=== PATIENT | male | born 1985 | race Caucasian/White ===

== ENCOUNTER 2018-05-19 17:08 | Emergency (ER) | payer MEDICAID ==
[~2018-05-19] VITALS: Ht 185.4 cm; Wt 88.5 kg
[2018-05-19 17:20] VITALS: BP 135/85
--- NOTE | 2018-05-19 17:30 | Emergency Room Report ---
History of Present Illness General Chief Complaint: General Complaint Source: Patient (Justino Womack MD) Present Illness HPI Patient is a 32-year-old male presented for increased generalized weakness. Patient reports having increased generalized fatigue and chest discomfort worse with upright position. He reports having prior Holter monitor which was nondiagnostic. Patient denies any prior history of cardiac disease. He denies being a smoker. He reports having increased left-sided chest pain. This had onset several days ago. It was intermittent in nature. He reports having some subjective fever and chills. (Justino Womack MD) Allergies: Coded Allergies: No Known Allergies (Unverified , 05/19/18) Patient History Reviewed Nursing Documentation: PMH: Agreed; PSxH: Agreed (Justino Womack MD) Nursing Documentation-PMH Past Medical History: No Stated History (Justino Womack MD) Review of Systems All Other Systems: negative except mentioned in HPI (Justino Womack MD) Physical Exam Vital Signs Date Time Temp Pulse Resp B/P (MAP) Pulse Ox O2 Delivery O2 Flow Rate FiO2 05/19/18 17:12 98.2 78 18 140/93 97 Room Air Sp02 EP Interpretation: reviewed, normal General Appearance: normal inspection, well appearing, no apparent distress, alert, GCS 15, non-toxic Head: atraumatic ENT: normal ENT inspection, hearing grossly normal, normal voice Neck: normal inspection, full range of motion, supple, no bony tend Respiratory: normal inspection, lungs clear, normal breath sounds, no respiratory distress, no retraction, no wheezing Cardiovascular #1: regular rate, rhythm, no edema Gastrointestinal: normal inspection, normal bowel sounds, non tender, soft, no guarding, no hernia Genitourinary: no CVA tenderness Musculoskeletal: normal inspection, back normal, normal range of motion Neurologic: normal inspection, alert, oriented x3, responsive, 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 Differential diagnosis includes is not limited to anxiety, pericarditis, myocardial infarction,aortic dissection among others.Because of complexity of patient's case laboratory testing and imaging studies were ordered. Patient shows some evidence of pancreatitis on laboratory testing. CT imaging showed no evident pancreatic structural changes. Patient was advised not to drink alcohol. Patient was also advised to follow up with primary care physician for further evaluation of elevation of TSH. Advised to follow a bland diet. He was to return for any concerns. Labs Test 05/19/18 17:58 White Blood Count 8.0 K/UL (4.8-10.8) Red Blood Count 5.56 M/UL (4.70-6.10) Hemoglobin 16.6 G/DL (14.2-18.0) Hematocrit 50.3 % (42.0-52.0) Mean Corpuscular Volume 90 FL (80-99) Mean Corpuscular Hemoglobin 29.9 PG (27.0-31.0) Mean Corpuscular Hemoglobin Concent 33.0 G/DL (32.0-36.0) Red Cell Distribution Width 11.4 % (11.6-14.8) Platelet Count 163 K/UL (150-450) Mean Platelet Volume 7.1 FL (6.5-10.1) Neutrophils (%) (Auto) 62.9 % (45.0-75.0) Lymphocytes (%) (Auto) 25.1 % (20.0-45.0) Monocytes (%) (Auto) 7.2 % (1.0-10.0) Eosinophils (%) (Auto) 4.1 % (0.0-3.0) Basophils (%) (Auto) 0.8 % (0.0-2.0) Urine Color Pale yellow Urine Appearance Clear Urine pH 6 (4.5-8.0) Urine Specific [place] 1.020 (1.005-1.035) Urine Protein Negative (NEGATIVE) Urine Glucose (UA) Negative (NEGATIVE) Urine Ketones Negative (NEGATIVE) Urine Blood 1+ (NEGATIVE) Urine Nitrite Negative (NEGATIVE) Urine Bilirubin Negative (NEGATIVE) Urine Urobilinogen Normal MG/DL (0.0-1.0) Urine Leukocyte Esterase Negative (NEGATIVE) Urine RBC 5-10 /HPF (0 - 0) Urine WBC 0 /HPF (0 - 0) Urine Squamous Epithelial Cells Occasional /LPF Urine Bacteria Occasional /HPF (NONE) Sodium Level 140 MMOL/L (136-145) Potassium Level 3.5 MMOL/L (3.5-5.1) Chloride Level 102 MMOL/L (98-107) Carbon Dioxide Level 29 MMOL/L (21-32) Anion Gap 9 mmol/L (5-15) Blood Urea Nitrogen 21 mg/dL (7-18) Creatinine 1.2 MG/DL (0.55-1.30) Estimat Glomerular Filtration Rate > 60 mL/min (>60) Glucose Level 96 MG/DL (74-106) Calcium Level 9.6 MG/DL (8.5-10.1) Total Bilirubin 0.4 MG/DL (0.2-1.0) Aspartate Amino Transf (AST/SGOT) 20 U/L (15-37) Alanine Aminotransferase (ALT/SGPT) 23 U/L (12-78) Alkaline Phosphatase 52 U/L (46-116) Troponin I 0.000 ng/mL (0.000-0.056) Total Protein 8.2 G/DL (6.4-8.2) Albumin 4.2 G/DL (3.4-5.0) Globulin 4.0 g/dL Albumin/Globulin Ratio 1.0 (1.0-2.7) Lipase 1047 U/L (73-393) Thyroid Stimulating Hormone (TSH) 5.423 uiU/mL (0.358-3.740) Urine Opiates Screen Negative (NEGATIVE) Urine Barbiturates Screen Negative (NEGATIVE) Phencyclidine (PCP) Screen Negative (NEGATIVE) Urine Amphetamines Screen Negative (NEGATIVE) Urine Benzodiazepines Screen Negative (NEGATIVE) Urine Cocaine Screen Negative (NEGATIVE) Urine Marijuana (THC) Screen Negative (NEGATIVE) (Justino Womack MD) ER Course Final CT reading this morning noted a 1.5 cm right renal lesion, possibly cyst. Can be further evaluated with an outpatient ultrasound. I spoke to patient and explained the findings. He understands that he will follow-up with his PMD. He will obtain copies of his medical records as well. (Harrison Gonzales MD) EKG Diagnostic Results Rate: normal - 74 Rhythm: NSR ST Segments: no acute changes (Justino Womack MD) Last Vital Signs Date Time Temp Pulse Resp B/P (MAP) Pulse Ox O2 Delivery O2 Flow Rate FiO2 05/19/18 17:12 98.2 78 18 140/93 97 Room Air Status: improved (Justino Womack MD) Disposition: HOME, SELF-CARE Condition: Stable Scripts No Active Prescriptions or Reported Meds Justino Womack MD May 19, 2018 17:30 Harrison Gonzales MD May 20, 2018 14:30
[2018-05-19 18:11] LABS: BASOPHILS % (AUTO) 0.8 % (0.0-2.0); EOSINOPHILS % (AUTO) 4.1 % (0.0-3.0); HEMATOCRIT 50.3 % (42.0-52.0); HEMOGLOBIN 16.6 G/DL (14.2-18.0); LYMPHOCYTES % (AUTO) 25.1 % (20.0-45.0); MEAN CORPUSCULAR VOLUME 90 FL (80-99); MONOCYTES % (AUTO) 7.2 % (1.0-10.0); NEUTROPHILS % (AUTO) 62.9 % (45.0-75.0); PLATELET COUNT 163 K/UL (150-450); RED BLOOD COUNT 5.56 M/UL (4.70-6.10); RED CELL DISTRIBUTION WIDTH 11.4 % (11.6-14.8)
[2018-05-19 18:12] LABS: APPEARANCE,URINE CLEAR; BILIRUBIN, URINE NEGATIVE (NEGATIVE); COLOR,URINE PALE YELLOW; GLUCOSE, URINE (UA) NEGATIVE (NEGATIVE); KETONES,URINE NEGATIVE (NEGATIVE); LEUKOCYTE ESTERASE ,URINE NEGATIVE (NEGATIVE); NITRITE,URINE NEGATIVE (NEGATIVE); PH,URINE 6 (4.5-8.0); PROTEIN,URINE NEGATIVE (NEGATIVE); UROBILINOGEN,URINE NORMAL MG/DL (0.0-1.0)
[2018-05-19 18:30] LABS: ANION GAP 9 mmol/L (5-15); BLOOD UREA NITROGEN 21 mg/dL (7-18); CALCIUM 9.6 MG/DL (8.5-10.1); CARBON DIOXIDE 29 MMOL/L (21-32); CHLORIDE 102 MMOL/L (98-107); CREATININE 1.2 MG/DL (0.55-1.30); POTASSIUM 3.5 MMOL/L (3.5-5.1); SODIUM 140 MMOL/L (136-145)
[2018-05-19 18:44] LABS: ALANINE AMINOTRANSFERASE 23 U/L (12-78); ALBUMIN 4.2 G/DL (3.4-5.0); ALKALINE PHOSPHATASE 52 U/L (46-116); ASPARTATE AMINO TRANSFERASE 20 U/L (15-37); BILIRUBIN,TOTAL 0.4 MG/DL (0.2-1.0)
[2018-05-19] MEDS ORDERED: Isovue-300 100ml vial INJ PRN (19:00)
[2018-05-19 20:15] VITALS: BP 135/85
--- NOTE | 2018-05-20 10:31 | Diagnostic Imaging Report ---
Clinical Indication: Abdominal pain and chest discomfort Technique: No oral contrast utilized, per emergency room physician request IV administration nonionic contrast. Venous phase spiral acquisition obtained through the abdomen and pelvis. Multiplanar reconstructions were generated. Total dose length product 874.37 mGycm. CTDIvol(s) 15.91 mGy. Dose reduction achieved using automated exposure control Comparison: none Findings: The appendix is normal. There are prominent nodes in the right lower quadrant mesentery. No free or loculated intraperitoneal gas or fluid is evident. No evidence of diverticulosis or diverticulitis. No small bowel distention. The distal esophagus, stomach, duodenum are unremarkable. The liver demonstrates subcentimeter low-attenuation lesions which are too small to characterize. The gallbladder, bile ducts, pancreas, spleen, adrenals are unremarkable. The right kidney demonstrates a 1.5 cm lesion in the interpolar region of the renal sinus which demonstrates nonspecific attenuation. Subcentimeter low-attenuation lesions are seen in the left kidney. No retroperitoneal mass or adenopathy. No pelvic mass or adenopathy. The included lung bases are clear except for some posterior dependent atelectatic changes. The bones are unremarkable Impression: No acute abnormality 1.5 cm right renal lesion, likely but not definitively a benign simple cortical cyst. Recommend ultrasound for further evaluation. This recommendation was discussed by phone with ER physician Dr. Gonzales at the time of interpretation Other subcentimeter low-attenuation left renal lesions which are too small to characterize, most likely benign simple cysts. No further follow-up necessary Prominent but not frankly enlarged right lower quadrant nodes, nonspecific Posterior dependent pulmonary atelectatic changes incidentally noted This agrees with the preliminary interpretation provided overnight by [facility]erad[facility] service. The CT scanner at [facility] is accredited by the [employer] and the scans are performed using protocols designed to limit radiation exposure to as low as reasonably achievable to attain images of sufficient resolution adequate for diagnostic evaluation.
--- NOTE | 2018-05-20 12:27 | Cardiology Report ---
APPROVED REPORT EKG Measurement Heart [id number] Normal sinus rhythm with sinus arrhythmia Normal ECG
== END 2018-05-19 20:10 | disposition home or self-care (01) ==
LOC: EMR 17:45
DX: K85.90 Acute pancreatitis without necrosis or infection, unspecified (principal); R94.6 Abnormal results of thyroid function studies; R07.9 Chest pain, unspecified
CPT/HCPCS: 36415; 74177; 80053; 80307; 81003; 83690; 84443; 84484; 85025; 85379; 93005; 99284; Q9967

== ENCOUNTER 2018-05-21 16:55 | Emergency (ER) | payer MEDICAID ==
[~2018-05-21] VITALS: Ht 185.4 cm; Wt 88.5 kg
[2018-05-21] MEDS ORDERED: NKM (17:03)
--- NOTE | 2018-05-21 17:07 | Emergency Room Report ---
History of Present Illness General Chief Complaint: Abdominal Pain Source: Patient Present Illness HPI Patient is a 32-year-old male brought in by self after increased abdominal pain. Patient been seen by me several days ago and was noted to have increased abdominal discomfort which did not improve. Patient had recent diagnosis of pancreatitis and had normal CT imaging performed several days ago. He reports having worsening pain after eating.. Allergies: Coded Allergies: No Known Allergies (Unverified , 05/21/18) Patient History Reviewed Nursing Documentation: PMH: Agreed; PSxH: Agreed Nursing Documentation-PMH Past Medical History: No History, Except For Hx Gastrointestinal Problems: Yes - PANCREATITIS Review of Systems All Other Systems: negative except mentioned in HPI Physical Exam Vital Signs Date Time Temp Pulse Resp B/P (MAP) Pulse Ox O2 Delivery O2 Flow Rate FiO2 05/21/18 16:59 98.4 70 16 132/84 98 Room Air Sp02 EP Interpretation: reviewed, normal General Appearance: normal inspection, well appearing, no apparent distress, alert, GCS 15, non-toxic Head: atraumatic ENT: normal ENT inspection, hearing grossly normal, normal voice Neck: normal inspection, full range of motion, supple, no bony tend Respiratory: normal inspection, lungs clear, normal breath sounds, no respiratory distress, no retraction, no wheezing Cardiovascular #1: regular rate, rhythm, no edema Gastrointestinal: normal inspection, normal bowel sounds, non tender, soft, no guarding, no hernia Genitourinary: no CVA tenderness Musculoskeletal: normal inspection, back normal, normal range of motion Neurologic: normal inspection, alert, oriented x3, responsive, 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 Differential diagnoses included ischemic bowel, appendicitis, perforated viscus, abdominal aortic aneurysm, inferior myocardial infarction, viral gastroenteritis among others. Because of complexity of patient's case laboratory testing and imaging studies were ordered. Patient was noted to have recent diagnosis of pancreatitis. He was given IV fluids as well as IV pain medications.Patient was noted to have normal lipase on laboratory testing. Patient's recent CT imaging did not showed any evidence of structural abnormalities. Patient was advised dietary modification. Patient was advised to recheck with his primary care physician for further workup of his thyroid. He was given prescription for pain medications. Labs Test 05/21/18 17:30 White Blood Count 5.1 K/UL (4.8-10.8) Red Blood Count 5.38 M/UL (4.70-6.10) Hemoglobin 16.2 G/DL (14.2-18.0) Hematocrit 47.7 % (42.0-52.0) Mean Corpuscular Volume 89 FL (80-99) Mean Corpuscular Hemoglobin 30.1 PG (27.0-31.0) Mean Corpuscular Hemoglobin Concent 33.9 G/DL (32.0-36.0) Red Cell Distribution Width 10.9 % (11.6-14.8) Platelet Count 160 K/UL (150-450) Mean Platelet Volume 6.8 FL (6.5-10.1) Neutrophils (%) (Auto) 62.0 % (45.0-75.0) Lymphocytes (%) (Auto) 27.2 % (20.0-45.0) Monocytes (%) (Auto) 7.0 % (1.0-10.0) Eosinophils (%) (Auto) 3.2 % (0.0-3.0) Basophils (%) (Auto) 0.6 % (0.0-2.0) Sodium Level 141 MMOL/L (136-145) Potassium Level 3.7 MMOL/L (3.5-5.1) Chloride Level 102 MMOL/L (98-107) Carbon Dioxide Level 28 MMOL/L (21-32) Anion Gap 11 mmol/L (5-15) Blood Urea Nitrogen 9 mg/dL (7-18) Creatinine 1.1 MG/DL (0.55-1.30) Estimat Glomerular Filtration Rate > 60 mL/min (>60) Glucose Level 88 MG/DL (74-106) Calcium Level 9.4 MG/DL (8.5-10.1) Total Bilirubin 0.6 MG/DL (0.2-1.0) Aspartate Amino Transf (AST/SGOT) 20 U/L (15-37) Alanine Aminotransferase (ALT/SGPT) 22 U/L (12-78) Alkaline Phosphatase 47 U/L (46-116) Total Protein 7.9 G/DL (6.4-8.2) Albumin 4.1 G/DL (3.4-5.0) Globulin 3.8 g/dL Albumin/Globulin Ratio 1.1 (1.0-2.7) Lipase 216 U/L (73-393) Last Vital Signs Date Time Temp Pulse Resp B/P (MAP) Pulse Ox O2 Delivery O2 Flow Rate FiO2 05/21/18 16:59 98.4 70 16 132/84 98 Room Air Status: improved Disposition: HOME, SELF-CARE Condition: Stable Scripts Dicyclomine Hcl* (DICYCLOMINE HCL*) 10 Mg Capsule 10 MG PO QID, #30 CAP Prov: Justino Womack MD 05/21/18 Hydrocodone Bit/Acetaminophen 5-325* (NORCO 5-325*) 1 Each Tablet 1 TAB ORAL Q6H PRN for For Pain, #16 TAB 0 Refills Prov: Justino Womack MD 05/21/18 Justino Womack MD May 21, 2018 17:07
[2018-05-21 17:10] VITALS: BP 132/84
--- NOTE | 2018-05-21 17:10 | NUR ---
ED Nurse Note: pt present at ER c/o abdominal pain 07/21. pt aao x4 and was present at ER 2 days ago with same symptom but has not been resolved. pt is ambulatory and skin clean and intact but pale. pt calm and cooperative. significant other is at bedside.
[2018-05-21] MEDS ORDERED: Morphine Sulfate 4mg/ml Inj (IV USE ONLY) IVP ONE (17:15)
[2018-05-21 18:28] LABS: BASOPHILS % (AUTO) 0.6 % (0.0-2.0); EOSINOPHILS % (AUTO) 3.2 % (0.0-3.0); HEMATOCRIT 47.7 % (42.0-52.0); HEMOGLOBIN 16.2 G/DL (14.2-18.0); LYMPHOCYTES % (AUTO) 27.2 % (20.0-45.0); MEAN CORPUSCULAR VOLUME 89 FL (80-99); PLATELET COUNT 160 K/UL (150-450); RED BLOOD COUNT 5.38 M/UL (4.70-6.10); RED CELL DISTRIBUTION WIDTH 10.9 % (11.6-14.8); WHITE BLOOD COUNT 5.1 K/UL (4.8-10.8)
[2018-05-21 18:32] LABS: ANION GAP 11 mmol/L (5-15); BLOOD UREA NITROGEN 9 mg/dL (7-18); CALCIUM 9.4 MG/DL (8.5-10.1); CARBON DIOXIDE 28 MMOL/L (21-32); CHLORIDE 102 MMOL/L (98-107); CREATININE 1.1 MG/DL (0.55-1.30); POTASSIUM 3.7 MMOL/L (3.5-5.1); SODIUM 141 MMOL/L (136-145)
[2018-05-21 18:36] LABS: ALANINE AMINOTRANSFERASE 22 U/L (12-78); ALBUMIN 4.1 G/DL (3.4-5.0); ALBUMIN/GLOBULIN RATIO 1.1 (1.0-2.7); ALKALINE PHOSPHATASE 47 U/L (46-116); ASPARTATE AMINO TRANSFERASE 20 U/L (15-37); BILIRUBIN,TOTAL 0.6 MG/DL (0.2-1.0)
[2018-05-21] MEDS ORDERED: NORCO 5-325 TA1 EACH ORAL (18:39)
[2018-05-21] MEDS ORDERED: DICYCLOMINE HCL10 MG PO (18:39)
[2018-05-21 18:56] VITALS: BP 132/84
--- NOTE | 2018-05-21 18:58 | NUR ---
ER DISCHARGE NOTE: Patient is cleared to be discharged per ERMD, pt is aox4, accompanied by significant other, on room air, with stable vital signs. pt was given dc and prescription instructions, pt was able to verbalize understanding, pt id band and iv site removed without complications. pt is able to ambulate with steady gait. pt took all belongings.
== END 2018-05-21 19:00 | disposition home or self-care (01) ==
LOC: EMR 17:35
DX: K85.90 Acute pancreatitis without necrosis or infection, unspecified (principal)
CPT/HCPCS: 36415; 80053; 83690; 85025; 96374; 96375; 99284; J2270; J2405; J7040

== ENCOUNTER 2019-08-03 19:29 | Emergency (ER) | payer MEDICAID ==
[~2019-08-03] VITALS: Ht 185.4 cm; Wt 86.2 kg
[~2019-08-03 19:29] MED LIST: DICYCLOMINE HCL10 MG PO; NKM; NORCO 5-325 TA1 EACH ORAL
[2019-08-03 19:41] VITALS: BP 154/97
--- NOTE | 2019-08-03 19:41 | NUR ---
ED Nurse Note: Walk-in patient triaged in tent with complaints of cough and fever for 4-5 days. Patient is currently afebrile, reports taking tylenol 2 hours ago.
[2019-08-03] MEDS ORDERED: TYLENOL EXTRA500 MG ORAL (19:56)
[2019-08-03] MEDS ORDERED: PROMETHAZI6.25 MG/1 ORAL (19:56)
[2019-08-03] MEDS ORDERED: VENTOLIN HFA18 GM INH (19:56)
--- NOTE | 2019-08-03 19:56 | Emergency Room Report ---
History of Present Illness General Chief Complaint: Upper Respiratory Illness Source: Patient Present Illness HPI 34-year-old male with no significant past medical history here complaining of 5 days of cough, shortness of breath and fever. Patient reports that about a week and a half ago he traveled out of state and was exposed to a confirmed case of COVID-19. Patient reports that his symptoms started 3 to 4 days after exposure to the patient who has COVID. Reports that the highest the patient has been 102 F and has been taking Tylenol. Denies any sore throat, congestion , headache and dizziness. Reports that he does not smoke tobacco, does not vape , does not smoke marijuana or any other drugs. Denies any past medical history. Sitting comfortably see vital sign, oxygenation within normal limit and is afebrile at this time. Reports that the shortness of breath is worse at nighttime. Also complains of 2 days of diarrhea without any blood in stool. Denies nausea vomiting abdominal pain Allergies: Coded Allergies: No Known Allergies (Unverified , 05/21/18) COVID-19 Screening Contact w/high risk pt: No Recent Travel to affected area: No Experienced COVID-19 symptoms?: Yes COVID-19 symptoms experienced: Fever (T>100.4F or >38C), Cough COVID-19 Testing performed ROPING TENDER: No Patient History Past Medical History: see triage record Past Surgical History: none Pertinent Family History: none Immunizations: UTD Reviewed Nursing Documentation: PMH: Agreed; PSxH: Agreed Nursing Documentation-PMH Past Medical History: No Stated History Hx Gastrointestinal Problems: Yes - PANCREATITIS Review of Systems All Other Systems: negative except mentioned in HPI Physical Exam Vital Signs Date Time Temp Pulse Resp B/P (MAP) Pulse Ox O2 Delivery O2 Flow Rate FiO2 08/03/19 19:41 98.2 73 16 154/97 (116) 97 Room Air Sp02 EP Interpretation: reviewed, normal General Appearance: no apparent distress, alert, GCS 15, non-toxic Head: normocephalic, atraumatic Eyes: bilateral eye normal inspection, bilateral eye PERRL ENT: hearing grossly normal, normal pharynx, no angioedema, normal voice Neck: full range of motion, supple, no meningismus, no bony tend, supple/symm/ no masses Respiratory: chest non-tender, lungs clear, normal breath sounds, no rhonchi, no respiratory distress, no wheezing, speaking full sentences Cardiovascular #1: regular rate, rhythm, no edema, no murmur Gastrointestinal: non tender, soft Rectal: deferred Genitourinary: no CVA tenderness Musculoskeletal: back normal Neurologic: alert, motor strength/tone normal, oriented x3, sensory intact, responsive, speech normal Psychiatric: judgement/insight normal, memory normal, mood/affect normal, no suicidal/homicidal ideation Skin: no rash Lymphatic: no adenopathy Medical Decision Making PA Attestation All diagnoses and treatment plans were reviewed and discussed with my supervising physician Dr. Turk Diagnostic Impression: Primary Impression: Upper respiratory infection ER Course 34-year-old male with no significant past medical history here complaining of 5 days of cough, shortness of breath and fever. Patient reports that about a week and a half ago he traveled out of state and was exposed to a confirmed case of COVID-19. Patient reports that his symptoms started 3 to 4 days after exposure to the patient who has COVID. Reports that the highest the patient has been 102 F and has been taking Tylenol. Denies any sore throat, congestion , headache and dizziness. Reports that he does not smoke tobacco, does not vape , does not smoke marijuana or any other drugs. Denies any past medical history. Sitting comfortably see vital sign, oxygenation within normal limit and is afebrile at this time. Reports that the shortness of breath is worse at nighttime. Also complains of 2 days of diarrhea without any blood in stool. Denies nausea vomiting abdominal pain Ddx considered but are not limited to: Suspected coronavirus, bronchitis, PNA, URI viral, bacterial bronchitis Vital signs: are WNL, pt. is afebrile H&PE are most consistent with: Upper respiratory infection, suspected coronavirus ORDERS: Phenergan DM, albuterol inhaler, Tylenol, chest x-ray ED INTERVENTIONS: None required at this time. DISCHARGE: At this time pt. is stable for d/c to home. Will provide printed patient care instructions, and any necessary prescriptions. Care plan and follow up instructions have been discussed with the patient prior to discharge. Gave information to cross the street for cover testing, patient to stay home for the next 14 days. Advised patient to get tested tomorrow as well as 14 days letter for return to work. If worsening symptom and no respiratory symptoms return to the emergency room. Due to patient stable vital signs as well as no past medical history and no smoking status patient does not need any further evaluation at this time. Chest X-Ray Diagnostic Results Chest X-Ray Diagnostic Results : Chest X-Ray Ordered: Yes # of Views/Limited/Complete: 1 View Indication: Shortness of Breath EP Interpretation: Yes CHON Xray: Interpretation reviewed, by supervising MD, and agrees with findings. Interpretation: no consolidation, no effusion, no pneumothorax Impression: No acute disease Electronically Signed by: Sukumar Fay PA-C Last Vital Signs Date Time Temp Pulse Resp B/P (MAP) Pulse Ox O2 Delivery O2 Flow Rate FiO2 08/03/19 19:41 98.2 73 16 154/97 (116) 97 Room Air Disposition: HOME, SELF-CARE Condition: Stable Scripts D-Methorphan Hb/Prometh Hcl* (PROMETHAZINE-DM SYRUP*) 118 Ml Syrup 5 ML ORAL Q6H PRN for For Cough, #240 ML 0 Refills Prov: Sukumar Wolf 08/03/19 Acetaminophen* (TYLENOL EXTRA STRENGTH*) 500 Mg Tablet 500 MG ORAL Q8H PRN for Prn Headache/Temp > 101, #30 TAB 0 Refills Prov: Sukumar Wolf 08/03/19 Albuterol Sulfate (VENTOLIN HFA) 18 Gm Hfa.aer.ad 2 PUFFS INH EVERY 6 HOURS, #18 GM 0 Refills Prov: Sukumar Wolf 08/03/19 Patient Instructions: Upper Respiratory Infection, Adult Additional Instructions: Take medication as directed, follow with primary doctor, stay home for 14 days, if worsening symptoms return to the emergency room Sukumar Wolf Aug 03, 2019 19:56
[2019-08-03] MEDS ORDERED: PROMETHAZINE-D118 ML ORAL (20:12)
[2019-08-03 20:19] VITALS: BP 154/97
--- NOTE | 2019-08-03 20:19 | NUR ---
ER DISCHARGE NOTE: Patient is cleared to be discharged per ERMD, pt is aox4, on room air, with stable vital signs. pt was given discharge instructions, pt was able to verbalize understanding, pt id band removed and patient departed with all belongings.
--- NOTE | 2019-08-04 10:54 | Diagnostic Imaging Report ---
Procedure: XRAY Chest 1v Reason for study: Reason For Exam: COUGH Comparison films: None. FINDINGS: A single one view chest is obtained. Vascularity is normal. The lung [place] are clear bilaterally. Cardiac and mediastinal silhouette are within normal limits. CP angles are sharp. The bony thorax appear unremarkable. IMPRESSION: NO ACUTE CARDIOPULMONARY DISEASE.
[2019-08-04] MEDS ORDERED: PROMETHAZI6.25 MG/1 ORAL (10:57)
== END 2019-08-03 20:22 | disposition home or self-care (01) ==
LOC: EMR 20:13
DX: J06.9 Acute upper respiratory infection, unspecified (principal)
CPT/HCPCS: 71045; Z7502; 99283